=== PATIENT | female | born 1940 | race Caucasian/White ===

== ENCOUNTER → 2016-09-18 | Outpatient (CLI) | payer MEDICARE ==
[~2016-09-18] MED LIST: ALIGN4 MG PO; CORDARONE,PACE200 MG PO; COREG 3.1253.125 MG PO; COUMADIN **IA1 MG PO; FEOSOL325 MG PO; LASIX40 MG PO; LEVOTHROID (SY50 MCG PO; LIPITOR40 MG PO; MIDODRINE HCL10 MG PO; MIRALAX17 GM PO; NEURONTIN300 MG PO; NITROSTAT0.4 MG SL; PRILOSEC20 MG PO; PROAMATINE5 MG PO; ROCALTROL0.25 MCG PO; THERAGRAN-M1 TAB PO; WELLBUTRIN XL150 M1 PO; ZOFRAN4 MG PO; ZOLOFT50 MG PO
[2016-09-18 10:52] LABS: INR - (THERAPEUTIC) 1.65 (0.92-1.07); PROTIME 17.4 SECONDS (9.8-11.4)
[2016-09-18 10:56] LABS: ANION GAP 12.5 (10.0-19.0); POTASSIUM 4.5 mMol/L (3.7-5.1)
== END ==
LOC: LNHI 10:40
PROVIDERS: Internal Medicine Cardiovascular Disease
DX: Z95.811 Presence of heart assist device (principal); I48.2 Chronic atrial fibrillation; I25.5 Ischemic cardiomyopathy; I25.10 Atherosclerotic heart disease of native coronary artery without angina pectoris; E78.5 Hyperlipidemia, unspecified; I10 Essential (primary) hypertension

== ENCOUNTER → 2017-01-22 | Outpatient (CLI) | payer MEDICARE | LOC: LGSMG 16:46 | DX: I50.42 Chronic combined systolic (congestive) and diastolic (congestive) heart failure (principal) ==